=== PATIENT | male | born 1950 | race Two or more races ===

== ENCOUNTER 2016-08-05 06:36 | Day surgery (SDC) | payer OTHER ==
[~2016-08-05] VITALS: Ht 175.3 cm; Wt 84.7 kg
[2016-08-05] MEDS ORDERED: gabapentin (07:51)
[2016-08-05] MEDS ORDERED: tylenol (07:51)
[2016-08-05] MEDS ORDERED: levothyroxine (07:51)
[2016-08-05 07:58] VITALS: Ht 175.3 cm; Wt 84.7 kg
[2016-08-05 08:23] VITALS: BP 167/83; PULSE 69; RESP 16
[2016-08-05 09:35] VITALS: BP 145/67; PULSE 68; RESP 18
--- NOTE | 2016-08-05 11:11 | GILP ---
DATE OF PROCEDURE: NAME OF PROCEDURES: 1. Colonoscopy, biopsy and polypectomy. 2. Esophagogastroduodenoscopy and biopsy. SURGEON: Blossom Harper MD PREOPERATIVE DIAGNOSES: 1. Abdominal pain. 2. Screening colonoscopy. POSTOPERATIVE DIAGNOSES 1. Gastritis with erosions. 2. Gastric mucosal biopsies were taken for Helicobacter pylori test. 3. Colonoscopy all the way to the cecum. FINDINGS: 1. The patient had multiple sigmoid polyps and one of them was removed using the snare and electroc autery and another one with biopsy forceps. 2. Internal hemorrhoids. INDICATION FOR THE PROCEDURE: Mr. Stef Iraheta is a 66-year-old male patient who had upper abdo patrick pain not responding to therapy. The patient also needed screening colonoscopy. The procedures and possible complications were well explained to the patient. The patient understoo d and consented to the procedure. DESCRIPTION OF PROCEDURE: Under the influence of anesthesia the gastroscope was carefully introduce d into the esophagus and under direct vision it was advanced to the stomach and through the pylorus, into the duodenal bulb and descending duodenum. FINDINGS: ESOPHAGUS: The mucosa was normal. STOMACH: The patient had gastritis with erosions. Gastric mucosal biopsies were taken for H. pylor i test. DUODENUM: Normal. The colonoscope was carefully introduced in the rectum and under direct vision it was advanced all t he way to the cecum. FINDINGS: The patient had multiple sigmoid polyps and they were removed using the snare and electro cautery, as well as biopsy forceps. He was also noted to have internal hemorrhoids. He tolerated the procedures very well and there was no complication from the procedures. At the end of the procedures he was awake with stable vital signs and he was discharged home to the care of hi s family. IMPRESSION: 1. Gastritis with erosions. 2. Gastric mucosal biopsies were taken for Helicobacter pylori test. 3. Colonoscopy all the way to the cecum. 4. The patient had multiple sigmoid colon polyps and one of them was removed using the snare and el ectrocautery and others with biopsy forceps. 5. Internal hemorrhoids. PLAN: 1. Omeprazole 40 mg p.o. q.a.m. 2. Await histopathology reports. 3. Because of the multiple polyps the patient had, the patient will need a repeat colonoscopy in 3 years. ADDENDUM: On upper endoscopy the patient was also noted to have a growth on the palate. I would rec ommend evaluation with an oral surgeon for the growth on the palate. Dictated By: BLOSSOM ANNA/ALFIE Conf#: [id number] DID#: [id number]
== END 2016-08-05 09:52 | disposition home or self-care (01) ==
LOC: GIL 06:36
PROVIDERS: ATTEND Internal Medicine Gastroenterology
DX: Z12.11 Encounter for screening for malignant neoplasm of colon (principal); D12.5 Benign neoplasm of sigmoid colon; K29.60 Other gastritis without bleeding; K64.8 Other hemorrhoids
CPT/HCPCS: 43239; 45380; 82962; 87081; 88305; Z7610